=== PATIENT | female | born 1985 | race Caucasian/White ===

== ENCOUNTER → 2016-12-07 | Outpatient (CLI) | payer BC ==
--- NOTE | 2016-12-08 14:08 | CR ---
EXAM DATE: 12/07/16 PATIENT'S AGE: 31 Patient: YADY REED Facility: [place], [place] Site . Site : 1985 Study: XRay Extremity Left 3rd and 4th fingers [id number]/3/2017 5:04:46 PM Ordering Physician: Ruma Motley Final Report: HISTORY: Jammed 3rd and 4th fingers multiple times in the last 2 months. Findings: Three views of the left 3rd and 4th fingers demonstrates normal alignment. Joint spaces are maintained. No fracture is identified. Impression: No fracture identified within the 3rd or 4th fingers. Dictated by Antonella Penny MD @ Dec 08 2016 1:47PM (Electronic Signature) Report Signed by Proxy and Original Signed Document filed in the Medical Record. AZEB
== END ==
LOC: MW.CHFP 16:35
PROVIDERS: ATTEND Nurse Practitioner Family
DX: S69.90XA Unspecified injury of unspecified wrist, hand and finger(s), initial encounter (principal)
CPT/HCPCS: 73140-26-LT; 73140-LT

== ENCOUNTER → 2017-01-12 | Outpatient (CLI) | payer BC | LOC: MW.CHPM 09:02 | PROVIDERS: ATTEND Anesthesiology | DX: Z51.81 Encounter for therapeutic drug level monitoring (principal); Z79.891 Long term (current) use of opiate analgesic | CPT/HCPCS: 80305 ==

== ENCOUNTER 2018-03-02 18:46 | Emergency (ER) | payer BC ==
[2018-03-02] MEDS ORDERED: Ketorolac 60 MG/2 ML SDV IM ONE (19:35)
--- NOTE | 2018-03-02 19:42 | EDM.PDOC ---
ED HPI GENERAL MEDICAL PROBLEM - General Chief Complaint: Upper Extremity Injury/Pain Stated Complaint: RT HAND SWOLLEN Time Seen by Provider: 03/02/18 19:35 Source of Information: Reports: Patient History Limitations: Reports: No Limitations - History of Present Illness INITIAL COMMENTS - FREE TEXT/NARRATIVE: HISTORY AND PHYSICAL: []33-year-old female presenting with pain to her right hand History of Present Illness: []SHe was hurrying to get out of the room and tripped over her suitcase this morning at 8:00. She landed on her right hand. She has had ice on this hand all day hours later she is now coming to the emergency department for evaluation. Review of Systems: As per history of present illness and below otherwise all systems reviewed and negative. Past medical history: As per history of present illness and as reviewed below otherwise noncontributory. Surgical history: As per history of present illness and as reviewed below otherwise noncontributory. Social history: No reported history of drug or alcohol abuse. Family history: As per history of present illness and as reviewed below otherwise noncontributory. Physical exam: Alert and oriented female having no other injuries any cough cold fever sore throat or flu symptoms prior to having this injury.She is nontoxic in appearance. HEENT: Atraumatic, normocehpalic, pupils reactive, negative for conjunctival pallor or scleral icterus, mucous membranes moist, throat clear, neck supple, nontender, trachea midline. Lungs: Clear to auscultation, breath sounds equal bilaterally, chest non tender. Heart: S1S2, regular, negative for clicks, rubs, or JVD. Abdomen: Soft, nondistended, nontender. Negative for masses or hepatossplenmegaly. Negative for costovertebral tenderness. Pelvis: Stable nontender. Genitourinary: Deferred. Rectal: Deferred Extremities:Ecchymosis noted to the base of her fifth finger edema is noted to the dorsum of her right hand fifth metacarpal negative for cords or calf pain. Neurovascular unremarkable. Neuro: Awake, alert, oriented. Cranial nerves II through XII unremarkable. Cerebellum unremarkable. Motor and sensory unremarkable throughout. Exam nonfocal. Have discussed with the patient that she has a metacarpal fracture did shaft on her fifth metacarpal. Diagnostics: []X-ray right hand Therapeutics: []Toradol 60 IM Gutter splint right hand to mid forearm Follow-up with Dr. Pierce Impression: []Nondisplaced transverse fracture through the mid diaphysis of fifth metacarpal Plan: []Discharge Home [id number] ibuprofen for pain Elevate and ice Follow-up with Dr. Gaby Pierce [facility] - Pl[facility] Professional Building [address] [place] [address], [address] [place] [address] Prescription for Hydrocodone/APAP 5/325mg 1 tablet three times a days as needed for pain #12NR Definitive disposition and diagnosis as appropriate pending reevaluation and review of above. Onset: Today, Sudden Duration: Hour(s): Location: Reports: Upper Extremity, Right Quality: Reports: Throbbing Severity: Moderate Improves with: Reports: None Worsens with: Reports: None Associated Symptoms: Reports: No Other Symptoms right arm Pain Score (Numeric/FACES): 8 - Related Data Allergies Allergy/AdvReac Type Severity Reaction Status Date / Time No Known Allergies Allergy Verified 03/02/18 19:16 Home Meds: Home Meds . [No Known Home Meds] 03/02/18 [History] Past Medical History HEENT History: Reports: None Cardiovascular History: Reports: None Respiratory History: Reports: None Gastrointestinal History: Reports: None Genitourinary History: Reports: None [employer] History: Reports: None Musculoskeletal History: Reports: None Neurological History: Reports: None Psychiatric History: Reports: None Endocrine/Metabolic History: Reports: None Hematologic History: Reports: None Immunologic History: Reports: None Oncologic (Cancer) History: Reports: None Dermatologic History: Reports: None - Infectious Disease History Infectious Disease History: Reports: None - Past Surgical History Head Surgeries/Procedures: Reports: None Musculoskeletal Surgical History: Reports: Other (See Below) Other Musculoskeletal Surgeries/Procedures:: spinal fusion Social & Family History - Family History Family Medical History: Noncontributory - Tobacco Use Smoking Status *Q: Current Some Day Smoker Years of Tobacco use: 2 Packs/Tins Daily: 0.5 - Caffeine Use Caffeine Use: Reports: Tea - Recreational Drug Use Recreational Drug Use: No Review of Systems - Review of Systems Review Of Systems: ROS reveals no pertinent complaints other than HPI. ED EXAM, GENERAL - Physical Exam Exam: See Below (See dictation) Course - Vital Signs Last Recorded V/S: Last Vital Signs Temp 36.4 C 03/02/18 19:15 Pulse 81 03/02/18 19:15 Resp 18 03/02/18 19:15 BP 150/97 H 03/02/18 19:15 Pulse Ox 98 03/02/18 19:15 - Orders/Labs/Meds Orders: Active Orders 24 hr Category Date Time Status Splinting [RC] ASDIRECTED Care 03/02/18 19:35 Ordered Hand 2V Rt [CR] Stat Exams 03/02/18 19:02 Taken Ketorolac [Toradol] Med 03/02/18 19:35 Once 60 mg IM ONETIME ONE Departure - Departure Time of Disposition: 19:40 Disposition: Home, Self-Care 01 Condition: Good Clinical Impression: Fracture of metacarpal bone Qualifiers: Encounter type: initial encounter Metacarpal bone: fifth Fracture type: closed Metacarpal location: shaft Fracture alignment: nondisplaced Laterality: right Qualified Code(s): S62.356A - Nondisplaced fracture of shaft of fifth metacarpal bone, right hand, initial encounter for closed fracture - Discharge Information Instructions: Cast or Splint Care, Adult, [id number], Metacarpal Fracture, [id number] Referrals: PCP,None [Primary Care Provider] - Sunshine Pierce MD [Physician] - Additional Instructions: The following information is given to patients seen in the emergency department who are being discharged to home. This information is to outline your options for follow-up care. We provide all patients seen in our emergency department with a follow-up referral. The need for follow-up, as well as the timing and circumstances, are variable depending upon the specifics of your emergency department visit. If you don't have a primary care physician on staff, we will provide you with a referral. We always advise you to contact your personal physician following an emergency department visit to inform them of the circumstance of the visit and for follow-up with them and/or the need for any referrals to a consulting specialist. The emergency department will also refer you to a specialist when appropriate. This referral assures that you have the opportunity for followup care with a specialist. All of these measure are taken in an effort to provide you with optimal care, which includes your followup. Under all circumstances we always encourage you to contact your private physician who remains a resource for coordinating your care. When calling for followup care, please make the office aware that this follow-up is from your recent emergency room visit. If for any reason you are refused follow-up, please contact the [facility] emergency department at and asked to speak to the emergency department charge nurse. You have a fifth metacarpal fracture nondisplaced Elevate and ice Splint has been applied to stabilize the fracture Pain medication per written prescription hydrocodone/APAP 5 mg/325 mg 1 tablet 3 times a day when necessary pain #12 no refill Follow-up with Dr. Gaby Pierce [facility] Special[facility] - Pl[facility] Professional Building [address] [place] [address], [address] [place] [address] - My Orders Last 24 Hours: My Active Orders 03/02/18 19:02 Hand 2V Rt [CR] Stat 03/02/18 19:35 Splinting [RC] ASDIRECTED Ketorolac [Toradol] 60 mg IM ONETIME ONE - Assessment/Plan Last 24 Hours: My Active Orders 03/02/18 19:02 Hand 2V Rt [CR] Stat 03/02/18 19:35 Splinting [RC] ASDIRECTED Ketorolac [Toradol] 60 mg IM ONETIME ONE
[2018-03-02 21:11] VITALS: BP 135/85
--- NOTE | 2018-03-03 09:45 | CR ---
EXAM DATE: 03/02/18 PATIENT'S AGE: 33 Patient: YADY REED Facility: [place], [place] Site . Site : 1985 Study: XRay Extremity Right [id number]/27/2018 7:15:07 PM Ordering Physician: Doctor King Final Report: HISTORY: Right hand pain. COMPARISON: None. FINDINGS: Acute nondisplaced transverse fracture through the mid diaphysis of the 5th metacarpal. Mild associated soft tissue swelling. Dictated by Haylie Ayers MD @ Mar 02 2018 7:22PM (Electronic Signature) Report Signed by Proxy. AZEB
== END 2018-03-02 20:57 | disposition home or self-care (01) ==
LOC: MW.ED 18:46
DX: S62.356A Nondisplaced fracture of shaft of fifth metacarpal bone, right hand, initial encounter for closed fracture (principal); W01.198A Fall on same level from slipping, tripping and stumbling with subsequent striking against other object, initial encounter; F17.210 Nicotine dependence, cigarettes, uncomplicated
CPT/HCPCS: 29125; 73120; 96372; 99283; J1885

== ENCOUNTER 2018-05-24 19:33 | Emergency (ER) | payer BC ==
[2018-05-24] MEDS ORDERED: Sodium Chloride 0.9% 10 ML Syringe FLUSH PRN (19:43)
[2018-05-24] MEDS ORDERED: Sodium Chloride 0.9% 2.5 ML Syringe FLUSH PRN (19:43)
[2018-05-24] MEDS ORDERED: LORazepam 2 MG/ML SDV IVPUSH ONE (19:52)
[2018-05-24] MEDS ORDERED: Pantoprazole 40 MG Vial IVPUSH ONE (19:52)
--- NOTE | 2018-05-24 19:57 | EDM.PDOC ---
ED HPI GENERAL MEDICAL PROBLEM - General Chief Complaint: Cardiovascular Problem Stated Complaint: HEART RATE ELEVATED Time Seen by Provider: 05/24/18 19:40 - History of Present Illness INITIAL COMMENTS - FREE TEXT/NARRATIVE: HISTORY AND PHYSICAL: History of present illness: The patient is a 33-year-old female with no significant cardiac GI or pulmonary history who presents with a 6 month history of episodic feeling like her heart is racing and she has tightness in her chest and abdomen. 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 The patient says she has had weeks of not sleeping properly and not eating properly and weight gain. She says she has been having regular periods and only has a history of ovarian cyst surgery as well as back surgery. She does smoke cigarettes and drinks occasionally and denies drug use. She has no family history of cardiac disease and says that she is not because she had a regular period recently. She says she is not vomiting in general with the symptoms but today she did have a small episode of vomiting. SHe said there was some dark fluid but it wasn't blood. She says over the last 2 days she has seen some blood with her stool but it is not grossly bloody or black. She has no abdominal pain or chest pain per se when the episodes happen. She says she just feels like everything is tight and she can't take a deep breath and they usually resolve spontaneously. She says they do not wake her from sleep but she is not sleeping very soundly any way. She says she came in tonight because this episode seemed to last longer and she was concerned. She has not discussed the symptoms with any provider in any clinic. Currently she is very tearful and says she has been very upset over the last weeks to months. She denied suicidal ideation on nursing evaluation Review of systems: As per history of present illness and below otherwise all systems reviewed and negative. Past medical history: As per history of present illness and as reviewed below otherwise noncontributory. Surgical history: As per history of present illness and as reviewed below otherwise noncontributory. Social history: No reported history of drug or alcohol abuse. Family history: As per history of present illness and as reviewed below otherwise noncontributory. Physical exam: General: Well-developed well-nourished overweight female who is nontoxic and vital signs of been reviewed by me. Patient seems somewhat anxious and tearful room but is cooperative and interactive. HEENT: Atraumatic, normocephalic, pupils reactive, negative for conjunctival pallor or scleral icterus, mucous membranes moist, throat clear, neck supple, nontender, trachea midline. There is no cervical adenopathy no nuchal rigidity and no overt thyromegaly is appreciated Lungs: Clear to auscultation, breath sounds equal bilaterally, chest nontender. No work of breathing wheezing or stridor and no tenderness with palpation of the chest wall. Heart: S1S2, regular, negative for clicks, rubs, or JVD. Abdomen: Soft, nondistended, nontender. Negative for masses or hepatosplenomegaly. Negative for costovertebral tenderness. Pelvis: Stable nontender. Genitourinary: Deferred. Rectal: Deferred. Extremities: Atraumatic, negative for cords or calf pain. Neurovascular unremarkable. No pedal edema or leg asymmetry Neuro: Awake, alert, oriented. Cranial nerves II through XII unremarkable. Cerebellum unremarkable. Motor and sensory unremarkable throughout. Exam nonfocal. Diagnostics: EKG CBC CMP amylase lipase TSH troponin H pylori UA UCG d-dimer chest x-ray Therapeutics: IV O2 monitor IV fluids Protonix On the EKG that was performed heart rate is 87 without any intervention Patient states she is feeling much better than she has in weeks and she now tells me that she has an appointment tomorrow with Haven Garcia to discuss her stressors. I have agreed to give her a few Ativan and I also discussed with her that she needs to follow-up for her blood pressure. For also for that. Impression: Palpitations/anxiety and stress response improving stable Definitive disposition and diagnosis as appropriate pending reevaluation and review of above. chest/abdomen Pain Score (Numeric/FACES): 10 - Related Data Allergies Allergy/AdvReac Type Severity Reaction Status Date / Time No Known Allergies Allergy Verified 05/24/18 19:47 Home Meds: Home Meds . [No Known Home Meds] 03/02/18 [History] Past Medical History HEENT History: Reports: None Cardiovascular History: Reports: None Respiratory History: Reports: None Gastrointestinal History: Reports: None Genitourinary History: Reports: None [employer] History: Reports: None Musculoskeletal History: Reports: None Neurological History: Reports: None Psychiatric History: Reports: None Endocrine/Metabolic History: Reports: None Hematologic History: Reports: None Immunologic History: Reports: None Oncologic (Cancer) History: Reports: None Dermatologic History: Reports: None - Infectious Disease History Infectious Disease History: Reports: None - Past Surgical History Head Surgeries/Procedures: Reports: None Musculoskeletal Surgical History: Reports: Other (See Below) Other Musculoskeletal Surgeries/Procedures:: spinal fusion Social & Family History - Family History Family Medical History: Noncontributory - Caffeine Use Caffeine Use: Reports: Tea ED ROS GENERAL - Review of Systems Review Of Systems: ROS reveals no pertinent complaints other than HPI. ED EXAM, GENERAL - Physical Exam Exam: See Below (See dictation) Course - Vital Signs Last Recorded V/S: Last Vital Signs Temp 37.1 C 05/24/18 19:43 Pulse 85 05/24/18 21:11 Resp 14 05/24/18 21:11 BP 160/101 H 05/24/18 21:11 Pulse Ox 100 05/24/18 21:16 - Orders/Labs/Meds Orders: Active Orders 24 hr Category Date Time Status Cardiac Monitoring [RC] . DIRECTED Care 05/24/18 19:43 Active EKG Documentation Completion [RC] STAT Care 05/24/18 19:43 Active Oxygen Therapy, ED [RC] ASDIRECTED Care 05/24/18 19:43 Active Pulse Oximetry [RC] ASDIRECTED Care 05/24/18 19:43 Active Chest 1V Frontal [CR] Stat Exams 05/24/18 19:52 Taken UA W/MICROSCOPIC [URIN] Stat Lab 05/24/18 21:10 Results Sodium Chloride 0.9% [Normal Saline] 1,000 ml Med 05/24/18 20:34 Active IV .Bolus Sodium Chloride 0.9% [Saline Flush] Med 05/24/18 19:43 Active 10 ml FLUSH ASDIRECTED PRN Sodium Chloride 0.9% [Saline Flush] Med 05/24/18 19:43 Active 2.5 ml FLUSH ASDIRECTED PRN Saline Lock Insert [OM.PC] Stat Oth 05/24/18 19:43 Ordered Medication Orders Sodium Chloride (Normal Saline) 1,000 mls @ 999 mls/hr IV .Bolus ONE Stop: 05/24/18 21:34 Last Admin: 05/24/18 20:38 Dose: 999 mls/hr Sodium Chloride (Saline Flush) 10 ml FLUSH ASDIRECTED PRN PRN Reason: Keep Vein Open Sodium Chloride (Saline Flush) 2.5 ml FLUSH ASDIRECTED PRN PRN Reason: Keep Vein Open Last Admin: 05/24/18 20:46 Dose: 2.5 ml Labs: Laboratory Tests 05/24/18 05/24/18 05/24/18 Range/Units 19:10 19:10 19:10 WBC 14.24 H (4.0-11.0) K/uL RBC 5.01 (4.30-5.90) M/uL Hgb 15.0 (12.0-16.0) g/dL Hct 44.7 (36.0-46.0) % MCV 89.2 (80.0-98.0) fL MCH 29.9 (27.0-32.0) pg MCHC 33.6 (31.0-37.0) g/dL RDW Std Deviation 46.2 (28.0-62.0) fl RDW Coeff of Ashu 14 (11.0-15.0) % Plt Count 317 (150-400) K/uL MPV 9.80 (7.40-12.00) fL Neut % (Auto) 61.7 (48.0-80.0) % Lymph % (Auto) 28.3 (16.0-40.0) % [place] % (Auto) 6.3 (0.0-15.0) % Eos % (Auto) 3.3 (0.0-7.0) % Baso % (Auto) 0.4 (0.0-1.5) % Neut # (Auto) 8.8 H (1.4-5.7) K/uL Lymph # (Auto) 4.0 H (0.6-2.4) K/uL [place] # (Auto) 0.9 H (0.0-0.8) K/uL Eos # (Auto) 0.5 (0.0-0.7) K/uL Baso # (Auto) 0.1 (0.0-0.1) K/uL Nucleated RBC % 0.0 /100WBC Nucleated RBCs # 0 K/uL D-Dimer, Quantitative 0.35 (0.0-0.52) mg/LFEU Sodium 137 (136-145) mmol/L Potassium 4.0 (3.5-5.1) mmol/L Chloride 102 (98-107) mmol/L Carbon Dioxide 24.3 (21.0-32.0) mmol/L BUN 12 (7.0-18.0) mg/dL Creatinine 0.9 (0.6-1.0) mg/dL Est Cr Clr Drug Dosing 92.91 mL/min Estimated GFR (MDRD) > 60.0 ml/min Glucose 86 (74-106) mg/dL Calcium 9.3 (8.5-10.1) mg/dL Total Bilirubin 0.6 (0.2-1.0) mg/dL AST 25 (15-37) IU/L ALT 40 (14-63) IU/L Alkaline Phosphatase 69 (46-116) U/L Troponin I < 0.050 (0.000-0.056) ng/mL Total Protein 8.3 H (6.4-8.2) g/dL Albumin 4.1 (3.4-5.0) g/dL Globulin 4.2 H (2.0-3.5) g/dL Albumin/Globulin Ratio 1.0 L (1.3-2.8) Amylase 36 (25-115) U/L Lipase 82 (73-393) U/L TSH 3rd Generation 3.16 (0.36-3.74) uIU/mL Urine Color Urine Appearance Urine pH (5.0-8.0) Ur Specific [place] (1.001-1.035) Urine Protein (NEGATIVE) mg/dL Urine Glucose (UA) (NEGATIVE) mg/dL Urine Ketones (NEGATIVE) mg/dL Urine Occult Blood (NEGATIVE) Urine Nitrite (NEGATIVE) Urine Bilirubin (NEGATIVE) Urine Urobilinogen (<2.0) EU/dL Ur Leukocyte Esterase (NEGATIVE) Urine HCG, Qual (NEGATIVE) H. pylori IgG Antibody (NEG) 05/24/18 05/24/18 05/24/18 Range/Units 19:10 21:10 21:10 WBC (4.0-11.0) K/uL RBC (4.30-5.90) M/uL Hgb (12.0-16.0) g/dL Hct (36.0-46.0) % MCV (80.0-98.0) fL MCH (27.0-32.0) pg MCHC (31.0-37.0) g/dL RDW Std Deviation (28.0-62.0) fl RDW Coeff of Ashu (11.0-15.0) % Plt Count (150-400) K/uL MPV (7.40-12.00) fL Neut % (Auto) (48.0-80.0) % Lymph % (Auto) (16.0-40.0) % [place] % (Auto) (0.0-15.0) % Eos % (Auto) (0.0-7.0) % Baso % (Auto) (0.0-1.5) % Neut # (Auto) (1.4-5.7) K/uL Lymph # (Auto) (0.6-2.4) K/uL [place] # (Auto) (0.0-0.8) K/uL Eos # (Auto) (0.0-0.7) K/uL Baso # (Auto) (0.0-0.1) K/uL Nucleated RBC % /100WBC Nucleated RBCs # K/uL D-Dimer, Quantitative (0.0-0.52) mg/LFEU Sodium (136-145) mmol/L Potassium (3.5-5.1) mmol/L Chloride (98-107) mmol/L Carbon Dioxide (21.0-32.0) mmol/L BUN (7.0-18.0) mg/dL Creatinine (0.6-1.0) mg/dL Est Cr Clr Drug Dosing mL/min Estimated GFR (MDRD) ml/min Glucose (74-106) mg/dL Calcium (8.5-10.1) mg/dL Total Bilirubin (0.2-1.0) mg/dL AST (15-37) IU/L ALT (14-63) IU/L Alkaline Phosphatase (46-116) U/L Troponin I (0.000-0.056) ng/mL Total Protein (6.4-8.2) g/dL Albumin (3.4-5.0) g/dL Globulin (2.0-3.5) g/dL Albumin/Globulin Ratio (1.3-2.8) Amylase (25-115) U/L Lipase (73-393) U/L TSH 3rd Generation (0.36-3.74) uIU/mL Urine Color YELLOW Urine Appearance CLEAR Urine pH 6.5 (5.0-8.0) Ur Specific [place] 1.010 (1.001-1.035) Urine Protein NEGATIVE (NEGATIVE) mg/dL Urine Glucose (UA) NEGATIVE (NEGATIVE) mg/dL Urine Ketones NEGATIVE (NEGATIVE) mg/dL Urine Occult Blood NEGATIVE (NEGATIVE) Urine Nitrite NEGATIVE (NEGATIVE) Urine Bilirubin NEGATIVE (NEGATIVE) Urine Urobilinogen 0.2 (<2.0) EU/dL Ur Leukocyte Esterase NEGATIVE (NEGATIVE) Urine HCG, Qual NEGATIVE (NEGATIVE) H. pylori IgG Antibody NEGATIVE (NEG) Meds: Medications Generic Name Dose Route Start Last Admin Trade Name Freq PRN Reason Stop Dose Admin Sodium Chloride 1,000 mls @ 999 mls/hr 05/24/18 20:34 05/24/18 20:38 Normal Saline IV 05/24/18 21:34 999 mls/hr .Bolus ONE Administration Sodium Chloride 10 ml 05/24/18 19:43 Saline Flush FLUSH ASDIRECTED PRN Keep Vein Open Sodium Chloride 2.5 ml 05/24/18 19:43 05/24/18 20:46 Saline Flush FLUSH 2.5 ml ASDIRECTED PRN Administration Keep Vein Open Discontinued Medications Generic Name Dose Route Start Last Admin Trade Name Eyadq PRN Reason Stop Dose Admin Sodium Chloride 500 mls @ 999 mls/hr 05/24/18 20:00 Normal Saline IV STAT ZEYNEP Lorazepam 1 mg 05/24/18 19:52 05/24/18 20:31 Ativan IVPUSH 05/24/18 19:53 1 mg ONETIME ONE Administration Pantoprazole Sodium 80 mg 05/24/18 19:52 05/24/18 20:43 Protonix Iv IVPUSH 05/24/18 19:53 80 mg .BOLUS ONE Administration Departure - Departure Time of Disposition: 21:30 Disposition: Home, Self-Care 01 Condition: Good Clinical Impression: Stress reaction, Palpitations Referrals: PCP,None [Primary Care Provider] - Forms: ED Department Discharge Additional Instructions: The following information is given to patients seen in the emergency department who are being discharged to home. This information is to outline your options for follow-up care. We provide all patients seen in our emergency department with a follow-up referral. The need for follow-up, as well as the timing and circumstances, are variable depending upon the specifics of your emergency department visit. If you don't have a primary care physician on staff, we will provide you with a referral. We always advise you to contact your personal physician following an emergency department visit to inform them of the circumstance of the visit and for follow-up with them and/or the need for any referrals to a consulting specialist. The emergency department will also refer you to a specialist when appropriate. This referral assures that you have the opportunity for followup care with a specialist. All of these measure are taken in an effort to provide you with optimal care, which includes your followup. Under all circumstances we always encourage you to contact your private physician who remains a resource for coordinating your care. When calling for followup care, please make the office aware that this follow-up is from your recent emergency room visit. If for any reason you are refused follow-up, please contact the [facility] emergency department at and ask to speak to the emergency department charge nurse. [facility] Primary care- Internal Medicine and Family [place] [phone] Please keep your appointment tomorrow with Haven Garcia at [facility] for management of your stress reaction and events going on in her life. Please also call and schedule primary care appointment to address her blood pressure and the palpitations that you've been feeling. Push hydration and rest and try to reduce stressors as much as you can. Take Ativan only as needed and discussed with Haven tomorrow whether or not you should continue. Return to ER as needed and as discussed. If you do use the Ativan that is prescribed to you please only take it when you're at home. - My Orders Last 24 Hours: My Active Orders 05/24/18 19:43 Cardiac Monitoring [RC] . DIRECTED EKG Documentation Completion [RC] STAT Oxygen Therapy, ED [RC] ASDIRECTED Pulse Oximetry [RC] ASDIRECTED Sodium Chloride 0.9% [Saline Flush] 10 ml FLUSH ASDIRECTED PRN Sodium Chloride 0.9% [Saline Flush] 2.5 ml FLUSH ASDIRECTED PRN Saline Lock Insert [OM.PC] Stat 05/24/18 19:52 Chest 1V Frontal [CR] Stat 05/24/18 20:34 Sodium Chloride 0.9% [Normal Saline] 1,000 ml IV .Bolus 05/24/18 21:10 UA W/MICROSCOPIC [URIN] Stat - Assessment/Plan Last 24 Hours: My Active Orders 05/24/18 19:43 Cardiac Monitoring [RC] . DIRECTED EKG Documentation Completion [RC] STAT Oxygen Therapy, ED [RC] ASDIRECTED Pulse Oximetry [RC] ASDIRECTED Sodium Chloride 0.9% [Saline Flush] 10 ml FLUSH ASDIRECTED PRN Sodium Chloride 0.9% [Saline Flush] 2.5 ml FLUSH ASDIRECTED PRN Saline Lock Insert [OM.PC] Stat 05/24/18 19:52 Chest 1V Frontal [CR] Stat 05/24/18 20:34 Sodium Chloride 0.9% [Normal Saline] 1,000 ml IV .Bolus 05/24/18 21:10 UA W/MICROSCOPIC [URIN] Stat
[2018-05-24] MEDS ORDERED: Sodium Chloride 0.9% 500 ML IV SCH (20:00)
[2018-05-24] MEDS ORDERED: Sodium Chloride 0.9% 1,000 ML IV ONE (20:34)
[2018-05-24 20:48] LABS: CHLORIDE,CL 102 mmol/L (98-107); SODIUM,NA 137 mmol/L (136-145)
[2018-05-24 21:12] VITALS: BP 160/101
--- NOTE | 2018-05-25 12:27 | CR ---
EXAM DATE: 05/24/18 PATIENT'S AGE: 33 Patient: YADY REED Facility: [place], [place] Site . Site : 1985 Study: XRay Chest [id number]/[id number] 8:39:38 PM Ordering Physician: Doctor King Final Report: Indication: Patient feels like her heart is racing. Technique: Single AP portable view of the chest was obtained. Comparison: None Findings: The heart is normal in size. The lungs are clear. No infiltrate, pleural effusion, pneumothorax is identified. Impression: No acute cardiopulmonary process. Dictated by Shannan Calderon MD @ May 24 2018 8:41PM (Electronic Signature) Report Signed by Proxy. [email or web address]
== END 2018-05-24 21:45 | disposition home or self-care (01) ==
LOC: MW.ED 19:33
DX: F43.9 Reaction to severe stress, unspecified (principal); F41.9 Anxiety disorder, unspecified
CPT/HCPCS: 36415; 71045; 80053; 81001; 81025; 82150; 83690; 84443; 84484; 85025; 85379; 86677; 93005; 96365; 96375; 99285; C9113; J2060; J7040